=== PATIENT | male | born 1960 | race Caucasian/White ===

== ENCOUNTER 2020-04-26 10:31 | Emergency (ER) | payer BC, OTHER ==
[~2020-04-26] VITALS: Ht 172.7 cm; Wt 68.0 kg
[2020-04-26 12:40] VITALS: BP 153/93
== END 2020-04-26 13:59 | disposition home or self-care (01) ==
LOC: ER 10:31
DX: R33.9 Retention of urine, unspecified (principal); N40.0 Benign prostatic hyperplasia without lower urinary tract symptoms; K76.89 Other specified diseases of liver
CPT/HCPCS: 74176; 81002

== ENCOUNTER 2020-06-23 13:56 | Emergency (ER) | payer BC ==
[~2020-06-23] VITALS: Ht 172.7 cm; Wt 68.0 kg
[2020-06-23 14:30] VITALS: BP 165/85
[2020-06-23 15:07] LABS: Urine Bacteria NONE SEEN /hpf (None Seen); Urine Blood Negative /uL (Negative); Urine Mucus FEW (None Seen); Urine Specific Gravity 1.011 (1.001-1.035); Urine WBC 1 /hpf (0 - 3)
== END 2020-06-23 17:37 | disposition home or self-care (01) ==
LOC: ER 13:56
DX: R33.9 Retention of urine, unspecified (principal)
CPT/HCPCS: 51702; 81001

== ENCOUNTER 2020-10-20 03:49 | Emergency (ER) | payer BC ==
[~2020-10-20] VITALS: Ht 172.7 cm; Wt 68.0 kg
[2020-10-20] MEDS ORDERED: LORazepam 0.5 MG TAB PO ONE (04:30)
[2020-10-20 05:05] VITALS: BP 152/95
[2020-10-20 06:09] LABS: Urine Bacteria FEW /hpf (None Seen); Urine Blood Negative /uL (Negative); Urine Hyaline Cast FEW /lpf (0 - 2); Urine Specific Gravity 1.017 (1.001-1.035); Urine WBC <1 /hpf (0 - 3)
== END 2020-10-20 07:19 | disposition home or self-care (01) ==
LOC: ER 03:57
DX: R33.9 Retention of urine, unspecified (principal); N40.0 Benign prostatic hyperplasia without lower urinary tract symptoms
CPT/HCPCS: 51702; 81001